=== PATIENT | male | born 1945 | race Caucasian/White ===

== ENCOUNTER 2018-03-02 17:25 | Outpatient (CLI) | payer OTHER ==
[~2018-03-02 17:25] MED LIST: CATAFLAM50 MG PO; CELEBREX100 MG PO; XANAX0.25 MG PO; [UNRECOGNIZED DRUG - OTHER] PO
== END 2018-03-02 17:40 | disposition home or self-care (01) ==
LOC: RAD 17:25
DX: M47.27 Other spondylosis with radiculopathy, lumbosacral region (principal); S22.000A Wedge compression fracture of unspecified thoracic vertebra, initial encounter for closed fracture

== ENCOUNTER → 2019-05-11 | Outpatient (CLI) | payer OTHER | END | disposition home or self-care (01) | LOC: RAD 08:36 | DX: I11.9 Hypertensive heart disease without heart failure (principal); R06.02 Shortness of breath ==

== ENCOUNTER 2019-09-13 09:25 | Outpatient (CLI) | payer OTHER | END 2019-09-13 15:00 | disposition home or self-care (01) | LOC: LAB 09:25 | DX: D69.6 Thrombocytopenia, unspecified (principal); D72.818 Other decreased white blood cell count; F33.8 Other recurrent depressive disorders; D50.8 Other iron deficiency anemias; D51.8 Other vitamin B12 deficiency anemias; D51.1 Vitamin B12 deficiency anemia due to selective vitamin B12 malabsorption with proteinuria; I10 Essential (primary) hypertension; E03.8 Other specified hypothyroidism; E06.3 Autoimmune thyroiditis ==

== ENCOUNTER → 2019-10-08 | Outpatient (CLI) | payer OTHER | END | disposition home or self-care (01) | LOC: SONOGRAMA 07:07 → MAMO-SONO 07:45 | DX: R74.0 Nonspecific elevation of levels of transaminase and lactic acid dehydrogenase [LDH] (principal); K76.0 Fatty (change of) liver, not elsewhere classified ==

== ENCOUNTER 2020-02-21 08:25 | Outpatient (CLI) | payer OTHER | END 2020-02-21 08:43 | disposition home or self-care (01) | LOC: LAB 08:25 | PROVIDERS: ATTEND Internal Medicine Geriatric Medicine | DX: D50.8 Other iron deficiency anemias (principal); E03.8 Other specified hypothyroidism; E78.2 Mixed hyperlipidemia; I11.9 Hypertensive heart disease without heart failure; N39.0 Urinary tract infection, site not specified; Z12.11 Encounter for screening for malignant neoplasm of colon; E55.9 Vitamin D deficiency, unspecified; N19 Unspecified kidney failure; E11.9 Type 2 diabetes mellitus without complications; K92.1 Melena; D51.1 Vitamin B12 deficiency anemia due to selective vitamin B12 malabsorption with proteinuria; D51.3 Other dietary vitamin B12 deficiency anemia; D69.6 Thrombocytopenia, unspecified; D72.818 Other decreased white blood cell count; M25.50 Pain in unspecified joint; R80.8 Other proteinuria ==

== ENCOUNTER 2020-02-21 09:25 | Outpatient (CLI) | payer OTHER | END 2020-02-21 09:34 | disposition home or self-care (01) | LOC: RAD 09:25 | PROVIDERS: ATTEND Internal Medicine Geriatric Medicine | DX: I11.9 Hypertensive heart disease without heart failure (principal); R06.02 Shortness of breath ==

== ENCOUNTER 2020-07-16 10:45 | Outpatient (CLI) | payer OTHER | END 2020-07-16 10:51 | disposition home or self-care (01) | LOC: NUCLEAR 10:45 | PROVIDERS: ATTEND Internal Medicine Geriatric Medicine | DX: I87.2 Venous insufficiency (chronic) (peripheral) (principal) ==

== ENCOUNTER 2022-05-27 07:26 | Outpatient (CLI) | payer OTHER | END 2022-05-27 07:27 | disposition home or self-care (01) | LOC: LAB 07:26 | PROVIDERS: ATTEND Internal Medicine Hematology & Oncology | DX: D50.8 Other iron deficiency anemias (principal); R79.9 Abnormal finding of blood chemistry, unspecified; I10 Essential (primary) hypertension; R74.02 Elevation of levels of lactic acid dehydrogenase [LDH]; K76.89 Other specified diseases of liver; R97.0 Elevated carcinoembryonic antigen [CEA]; R97.8 Other abnormal tumor markers; R97.20 Elevated prostate specific antigen [PSA]; D51.1 Vitamin B12 deficiency anemia due to selective vitamin B12 malabsorption with proteinuria; D51.3 Other dietary vitamin B12 deficiency anemia; D69.6 Thrombocytopenia, unspecified; D72.818 Other decreased white blood cell count; F33.9 Major depressive disorder, recurrent, unspecified ==

== ENCOUNTER 2022-12-04 07:40 | Outpatient (CLI) | payer OTHER | END 2022-12-04 07:41 | disposition home or self-care (01) | LOC: LAB 07:40 | PROVIDERS: ATTEND Internal Medicine Hematology & Oncology | DX: D50.8 Other iron deficiency anemias (principal); R79.9 Abnormal finding of blood chemistry, unspecified; I10 Essential (primary) hypertension; R74.02 Elevation of levels of lactic acid dehydrogenase [LDH]; K76.89 Other specified diseases of liver; D51.8 Other vitamin B12 deficiency anemias; R97.0 Elevated carcinoembryonic antigen [CEA]; R97.8 Other abnormal tumor markers; R97.20 Elevated prostate specific antigen [PSA]; D51.1 Vitamin B12 deficiency anemia due to selective vitamin B12 malabsorption with proteinuria; D51.3 Other dietary vitamin B12 deficiency anemia; D69.6 Thrombocytopenia, unspecified; D72.818 Other decreased white blood cell count; F33.9 Major depressive disorder, recurrent, unspecified ==

== ENCOUNTER → 2023-11-30 07:29 | Outpatient (CLI) | payer OTHER ==
[2023-11-30 09:09] LABS: HEMATOCRIT 40.3 % (39.0-48.0); HEMOGLOBIN 13.8 g/dL (13-16.00); MEAN CELL VOLUME 88.1 fL (80.0-100.00); MEAN CORPUSCULAR HEMOGLOBIN 30.2 pg (27.00-32.0); MEAN CORPUSCULAR HGB CONC 34.3 g/dl (32.0-36.0); RED BLOOD COUNT 4.58 M/uL (4.00-6.00)
[2023-11-30 09:12] LABS: PLATELET COUNT 119 K/uL (150-450)
[2023-11-30 09:42] LABS: BILIRUBIN TOTAL 1.26 mg/dL (0.3-1.2); CALCIUM 8.8 mg/dL (8.5-10.1); CREATININE SERUM 0.66 mg/dL (0.70-1.30); GFR 116.73; GLOBULINA 3.4 G/DL (2.4-3.5); POTASSIUM 3.86 mEq/L (3.5-5.1); TOTAL PROTEIN 7.4 gm/dL (6.4-8.2)
[2023-11-30 09:45] LABS: PROSTATIC SPECIFIC ANTIGEN 6.26 NG/ML (0.010-4.00)
[2023-11-30 11:24] LABS: FOLIC ACID 9.14 ng/ml (4.78-20); VITAMIN D3 25 HYDROXY 32.85 ng/ml (30-120)
[2023-12-01 15:22] LABS: MANUAL PLATELET COUNT 176
[2023-12-01 15:23] LABS: PLATELET ESTIMATE NORMAL (NORMAL)
== END | disposition home or self-care (01) ==
LOC: LAB 07:29
PROVIDERS: ATTEND Internal Medicine Hematology & Oncology
DX: D50.8 Other iron deficiency anemias (principal); R79.9 Abnormal finding of blood chemistry, unspecified; I10 Essential (primary) hypertension; K74.02 Hepatic fibrosis, advanced fibrosis; K76.89 Other specified diseases of liver; D51.8 Other vitamin B12 deficiency anemias; E55.9 Vitamin D deficiency, unspecified; R97.0 Elevated carcinoembryonic antigen [CEA]; R97.8 Other abnormal tumor markers; R97.20 Elevated prostate specific antigen [PSA]

== ENCOUNTER 2024-06-01 06:55 | Outpatient (CLI) | payer OTHER ==
[2024-06-01 08:21] LABS: HEMOGLOBIN 14.1 g/dL (13-16.00); MEAN CELL VOLUME 87.5 fL (80.0-100.00); MEAN CORPUSCULAR HEMOGLOBIN 29.4 pg (27.00-32.0); MEAN CORPUSCULAR HGB CONC 33.6 g/dl (32.0-36.0); RED CELL DISTRIBUTION WIDTH 15.7 % (11.5-14.5)
[2024-06-01 09:06] LABS: PLATELET COUNT 115 K/uL (150-450)
[2024-06-01 09:49] LABS: % SATURACION 31.5 % (20-50); ALBUMIN 4.4 gm/dL (3.4-5.0); BILIRUBIN TOTAL 1.69 mg/dL (0.3-1.2); CALCIUM 9.1 mg/dL (8.5-10.1); CREATININE SERUM 0.65 mg/dL (0.70-1.30); FERRITIN 85.2 NG/ML (26-388); GFR 118.8; GLOBULINA 3.1 G/DL (2.4-3.5); POTASSIUM 4.33 mEq/L (3.5-5.1); TOTAL PROTEIN 7.5 gm/dL (6.4-8.2)
[2024-06-01 09:52] LABS: PROSTATIC SPECIFIC ANTIGEN 5.26 NG/ML (0.010-4.00)
[2024-06-01 12:36] LABS: FOLIC ACID 16.21 ng/ml (4.78-20); VITAMIN D3 25 HYDROXY 41.6 ng/ml (30-120)
[2024-06-04 09:53] LABS: MANUAL PLATELET COUNT 294
[2024-06-04 09:55] LABS: PLATELET ESTIMATE NORMAL (NORMAL)
== END 2024-06-01 06:56 | disposition home or self-care (01) ==
LOC: LAB 06:55
PROVIDERS: ATTEND Internal Medicine Hematology & Oncology
DX: D51.1 Vitamin B12 deficiency anemia due to selective vitamin B12 malabsorption with proteinuria (principal); D51.3 Other dietary vitamin B12 deficiency anemia; D69.6 Thrombocytopenia, unspecified; D72.818 Other decreased white blood cell count; F33.9 Major depressive disorder, recurrent, unspecified; R97.20 Elevated prostate specific antigen [PSA]; D50.8 Other iron deficiency anemias; R79.9 Abnormal finding of blood chemistry, unspecified; I10 Essential (primary) hypertension; R74.02 Elevation of levels of lactic acid dehydrogenase [LDH]; K76.89 Other specified diseases of liver; E55.9 Vitamin D deficiency, unspecified; R97.0 Elevated carcinoembryonic antigen [CEA]

== ENCOUNTER 2024-12-10 06:34 | Outpatient (CLI) | payer OTHER ==
[2024-12-10 07:30] LABS: HEMATOCRIT 41.9 % (39.0-48.0); HEMOGLOBIN 14.1 g/dL (13-16.00); MEAN CELL VOLUME 90.1 fL (80.0-100.00); MEAN CORPUSCULAR HEMOGLOBIN 30.2 pg (27.00-32.0); MEAN CORPUSCULAR HGB CONC 33.5 g/dl (32.0-36.0); RED BLOOD COUNT 4.65 M/uL (4.00-6.00); RED CELL DISTRIBUTION WIDTH 14.7 % (11.5-14.5)
[2024-12-10 07:46] LABS: PLATELET COUNT 110 K/uL (150-450)
[2024-12-10 08:39] LABS: % SATURACION 45.8 % (20-50); BILIRUBIN TOTAL 1.11 mg/dL (0.3-1.2); CALCIUM 8.7 mg/dL (8.5-10.1); CREATININE SERUM 0.65 mg/dL (0.70-1.30); FERRITIN 90.6 NG/ML (26-388); GFR 118.5; GLOBULINA 3.1 G/DL (2.4-3.5); POTASSIUM 4.04 mEq/L (3.5-5.1); TOTAL PROTEIN 7.1 gm/dL (6.4-8.2)
[2024-12-10 08:49] LABS: PROSTATIC SPECIFIC ANTIGEN 6.04 NG/ML (0.010-4.00)
[2024-12-10 12:12] LABS: FOLIC ACID 13.06 ng/ml (4.78-20); VITAMIN D3 25 HYDROXY 47.26 ng/ml (30-120)
[2024-12-11 07:59] LABS: MANUAL PLATELET COUNT 238; PLATELET ESTIMATE NORMAL (NORMAL)
== END 2024-12-10 06:48 | disposition home or self-care (01) ==
LOC: LAB 06:34
PROVIDERS: ATTEND Internal Medicine Hematology & Oncology
DX: D51.1 Vitamin B12 deficiency anemia due to selective vitamin B12 malabsorption with proteinuria (principal); D51.3 Other dietary vitamin B12 deficiency anemia; D69.6 Thrombocytopenia, unspecified; D72.818 Other decreased white blood cell count; F33.9 Major depressive disorder, recurrent, unspecified; R97.20 Elevated prostate specific antigen [PSA]; D50.8 Other iron deficiency anemias; R79.9 Abnormal finding of blood chemistry, unspecified; I10 Essential (primary) hypertension; R74.02 Elevation of levels of lactic acid dehydrogenase [LDH]; K76.89 Other specified diseases of liver; E55.9 Vitamin D deficiency, unspecified; R97.0 Elevated carcinoembryonic antigen [CEA]